=== PATIENT | female | born 1980 | race Caucasian/White ===

== ENCOUNTER 2016-11-17 13:17 | Emergency (ER) | payer MEDICAID ==
[~2016-11-17] VITALS: Ht 170.2 cm; Wt 67.3 kg
[~2016-11-17 13:17] MED LIST: CEFA500C8 PO; DOCU-30 PO; ENOX120S5 SQ; HYDR-3240 PO; LABE100T3 PO; Lovenox; NITR100C PO; OXYC10TA6 PO; POLY17PO5 PO; WARF10TA PO; WARF7.5T PO
[2016-11-17 13:21] VITALS: BP 161/101
== END 2016-11-17 16:20 | disposition left against medical advice (07) ==
LOC: ED 16:00
DX: M79.605 Pain in left leg (principal); Z53.21 Procedure and treatment not carried out due to patient leaving prior to being seen by health care provider

== ENCOUNTER 2016-12-17 10:49 | Emergency (ER) | payer MEDICAID ==
[~2016-12-17] VITALS: Ht 167.6 cm; Wt 71.1 kg
[2016-12-17] MEDS ORDERED: KETOROLAC 30 MG/1 ML ONE (11:36)
[2016-12-17 12:00] LABS: BLOOD UREA NITROGEN 12 mg/dL (7-18)
[2016-12-17] MEDS ORDERED: KETOROLAC 30 MG/1 ML IM ONE (12:00)
[2016-12-17 14:44] VITALS: BP 147/83
== END 2016-12-17 14:49 | disposition home or self-care (01) ==
LOC: ED 11:44
DX: K59.00 Constipation, unspecified (principal); M54.9 Dorsalgia, unspecified; F17.210 Nicotine dependence, cigarettes, uncomplicated; I10 Essential (primary) hypertension
CPT/HCPCS: 36415; 74176; 80048; 81003; 82040; 84703; 85025; 96372; 99285; J1885

== ENCOUNTER 2017-01-04 07:40 | Emergency (ER) | payer MEDICAID ==
[~2017-01-04] VITALS: Ht 168.9 cm; Wt 66.6 kg
[2017-01-04 07:41] VITALS: BP 135/77
[2017-01-04] MEDS ORDERED: RABIES VACCINE /PF 2.5 UNITS IM-VACC ONE (08:30)
[2017-01-04] MEDS ORDERED: HYDROcodone/APAP 5/325 TABLET PO ONE (08:30)
[2017-01-04] MEDS ORDERED: RABIES IMMUNE GLOBULIN/PF 150 UNITS/ML, 2ML IM ONE ×2 (08:30→09:00)
[2017-01-04] MEDS ORDERED: DIPH,PERTUSS(ACELL),TET VAC/PF 0.5 ML IM-VACC ONE ×2 (08:30→08:49)
[2017-01-04] MEDS ORDERED: HYDROcodone/APAP 5/325 TABLET ONE ×2 (08:48→08:52)
[2017-01-04] MEDS ORDERED: BACITRACIN ZINC OINT 500U/GM, 0.9 GM ONE ×2 (09:31→09:32)
== END 2017-01-04 10:32 | disposition home or self-care (01) ==
LOC: ED 10:10
DX: S21.151A Open bite of right front wall of thorax without penetration into thoracic cavity, initial encounter (principal); S31.150A Open bite of abdominal wall, right upper quadrant without penetration into peritoneal cavity, initial encounter; S61.452A Open bite of left hand, initial encounter; I10 Essential (primary) hypertension; W54.0XXA Bitten by dog, initial encounter; Y93.89 Activity, other specified; Y92.89 Other specified places as the place of occurrence of the external cause; Y99.8 Other external cause status
CPT/HCPCS: 36415; 85610; 90375; 90471; 90472; 90675; 90715; 96372

== ENCOUNTER 2017-02-09 16:56 | Emergency (ER) | payer MEDICAID ==
[~2017-02-09] VITALS: Ht 167.6 cm; Wt 68.8 kg
[2017-02-09] MEDS ORDERED: DIPHENHYDRAMINE 25 MG CAPSULE ONE (17:13)
[2017-02-09] MEDS ORDERED: FAMOTIDINE 20 MG TABLET ONE (17:13)
[2017-02-09] MEDS ORDERED: DIPHENHYDRAMINE 25 MG CAPSULE PO ONE (17:30)
[2017-02-09] MEDS ORDERED: FAMOTIDINE 20 MG TABLET PO ONE (17:30)
[2017-02-09 17:37] LABS: BLOOD UREA NITROGEN 12 mg/dL (7-18)
[2017-02-09 19:43] VITALS: BP 136/93
== END 2017-02-09 19:48 | disposition home or self-care (01) ==
LOC: ED 19:00
DX: L50.0 Allergic urticaria (principal); I10 Essential (primary) hypertension
CPT/HCPCS: 36415; 71010; 80048; 82040; 85025; 99285; Q0163

== ENCOUNTER 2017-07-27 00:11 | Emergency (ER) | payer MEDICAID, OTHER ==
[~2017-07-27] VITALS: Ht 170.2 cm; Wt 64.0 kg
[~2017-07-27 00:11] MED LIST changes: +DOCU-131 PO; -DOCU-30 PO
[2017-07-27 01:06] VITALS: BP 140/79
== END 2017-07-27 01:07 | disposition home or self-care (01) ==
LOC: ED 00:16
DX: I10 Essential (primary) hypertension (principal); Z02.89 Encounter for other administrative examinations; Z85.72 Personal history of non-Hodgkin lymphomas
CPT/HCPCS: 99283

== ENCOUNTER 2019-07-19 03:09 | Emergency (ER) | payer MEDICAID ==
[~2019-07-19] VITALS: Ht 167.6 cm; Wt 68.0 kg
[~2019-07-19 03:09] MED LIST changes: -LABE100T3 PO; +LABE100T6 PO; +PROP10TA51 PO; +WARF10TA43 PO
--- NOTE | 2019-07-19 03:19 | NUR ---
JOSÉ MIGUEL BRADFORD IN TO EVAL PT. AND DISCUSS POC WITH PT. PT. CONNECTED TO CONTINUOUS PULSE OX AND B/P MONITORS. [facility] AT DOORWAY WITH PT.
--- NOTE | 2019-07-19 03:32 | NUR ---
MED REQUEST WAS SENT TO PHARMACY; ORDER CHANGED. PHARMACY AWARE MED NO LONGER NEEDED. LAB AT FOR BLOOD DRAW. PT. WITH NO DISTRESS.
[2019-07-19 03:41] LABS: BASOPHILS # (AUTO) 0.03 x10^3/uL (0-0.1); BASOPHILS % (AUTO) 0 % (0-1); EOSINOPHILS # (AUTO) 0.06 x10^3/uL (0-0.4); EOSINOPHILS % (AUTO) 1 % (1-7); LYMPHOCYTES # (AUTO) 1.79 x10^3/uL (1-3.4); LYMPHOCYTES % (AUTO) 14 % (22-44); MD NO; MEAN CORPUSCULAR HEMOGLOBIN 30.5 pg (27.0-34.8); MEAN CORPUSCULAR HGB CONC 33.1 g/dL (32.4-35.8); MEAN CORPUSCULAR VOLUME 92.2 fL (80-100); MEAN PLATELET VOLUME 8.3 fL (7.4-10.4); MONOCYTES # (AUTO) 0.22 x10^3/uL (0.2-0.8); MONOCYTES % (AUTO) 2 % (2-9); NEUTROPHILS # (AUTO) 10.53 x10^3/uL (1.8-6.8); NEUTROPHILS % (AUTO) 83 % (42-75); PLATELET COUNT 232 x10^3/uL (130-400); RED BLOOD COUNT 5.16 x10^6/uL (3.82-5.3); RED CELL DISTRIBUTION WIDTH 12.9 % (9.6-15.2)
[2019-07-19 03:51] LABS: INTERNATIONAL NORMALIZED RATIO 0.96 (0.93-1.1); PROTHROMBIN TIME 10.1 Seconds (9.6-11.5)
[2019-07-19 03:53] LABS: ALBUMIN 3.5 g/dL (3.4-5.0); ANION GAP 5 mmol/L (5-15); CALCIUM 8.9 mg/dL (8.5-10.1); CHLORIDE 108 mmol/L (98-107); CREATININE 0.73 mg/dL (0.55-1.02)
[2019-07-19] MEDS ORDERED: LORazepam 2 MG/ML, 1ML ONE (04:07)
[2019-07-19] MEDS ORDERED: LORazepam 2 MG/ML, 1ML IM STA (04:08)
[2019-07-19] MEDS ORDERED: ASPIRIN 325 MG TABLET ONE (04:08)
[2019-07-19] MEDS ORDERED: ASPIRIN 325 MG TABLET PO STA (04:08)
--- NOTE | 2019-07-19 04:10 | NUR ---
VS UPDATED AND REPORTED TO JOSÉ MIGUEL BRADFORD. NEW ORDERS RECEIVED. PT. RESTING ON GURNEY WITH NO DISTRESS NOTED. RESPIRATIONS EVEN, NON-LABORED. [facility] REMAINS AT DOORWAY.
[2019-07-19 04:33] VITALS: BP 162/108
== END 2019-07-19 04:36 | disposition home or self-care (01) ==
LOC: ED 04:20
DX: I10 Essential (primary) hypertension (principal); F17.210 Nicotine dependence, cigarettes, uncomplicated
CPT/HCPCS: 36415; 80048; 82040; 85025; 85610; 93005; 96372; 99284; J2060

== ENCOUNTER 2019-09-25 11:38 | Emergency (ER) | payer MEDICAID ==
[~2019-09-25] VITALS: Ht 167.6 cm; Wt 70.6 kg
[2019-09-25 13:00] LABS: BASOPHILS # (AUTO) 0.06 x10^3/uL (0-0.1); BASOPHILS % (AUTO) 1 % (0-1); EOSINOPHILS # (AUTO) 0.04 x10^3/uL (0-0.4); EOSINOPHILS % (AUTO) 0 % (1-7); LYMPHOCYTES # (AUTO) 2.16 x10^3/uL (1-3.4); LYMPHOCYTES % (AUTO) 20 % (22-44); MD NO; MEAN CORPUSCULAR HEMOGLOBIN 30.6 pg (27.0-34.8); MEAN CORPUSCULAR HGB CONC 33.6 g/dL (32.4-35.8); MEAN CORPUSCULAR VOLUME 91.2 fL (80-100); MEAN PLATELET VOLUME 9.1 fL (7.4-10.4); MONOCYTES # (AUTO) 0.56 x10^3/uL (0.2-0.8); MONOCYTES % (AUTO) 5 % (2-9); NEUTROPHILS % (AUTO) 74 % (42-75); PLATELET COUNT 227 x10^3/uL (130-400); RED BLOOD COUNT 5.12 x10^6/uL (3.82-5.3)
[2019-09-25 13:16] LABS: ALBUMIN 3.3 g/dL (3.4-5.0); ANION GAP 6 mmol/L (5-15); CALCIUM 8.4 mg/dL (8.5-10.1); CHLORIDE 107 mmol/L (98-107)
[2019-09-25 13:17] LABS: CREATININE 0.99 mg/dL (0.55-1.02)
[2019-09-25] MEDS ORDERED: hydrALAzine 20 MG/ML, 1ML ONE (13:22)
--- NOTE | 2019-09-25 13:41 | NUR ---
MEDICAL LAB ASSISTANT: PT WALKED BACK FROM LOBBY TO ROOM AT THIS TIME.
--- NOTE | 2019-09-25 13:51 | NUR ---
ASSUMED CARE OF PATIENT. PATIENT REPORTS REDNESS WITH BLISTERS TO RIGHT HAND. VS STABLE. NO ACUTE DISTRESS NOTED. WILL CONTINUE TO MONITOR.
[2019-09-25] MEDS ORDERED: CEFTRIAXONE 1,000 MG IM ONE (14:00)
[2019-09-25] MEDS ORDERED: CEFTRIAXONE 1,000 MG ONE (14:06)
[2019-09-25 14:54] VITALS: BP 119/83
== END 2019-09-25 14:58 | disposition home or self-care (01) ==
LOC: ED 14:14
DX: L03.011 Cellulitis of right finger (principal); L02.511 Cutaneous abscess of right hand; F17.200 Nicotine dependence, unspecified, uncomplicated; I10 Essential (primary) hypertension
CPT/HCPCS: 36415; 73130; 80048; 82040; 85025; 96372; 99284; J0696